=== PATIENT | female | born 1975 | race Two or more races ===

== ENCOUNTER 2025-01-15 19:12 | Emergency (ER) | payer OTHER ==
[~2025-01-15] VITALS: Ht 154.9 cm; Wt 47.2 kg
[2025-01-15] MEDS ORDERED: WELCHOL3.75 GM PO (19:27)
[2025-01-15] MEDS ORDERED: 0.9 % SODIUM CHLORIDE 1,000 ML IV STA (21:08)
[2025-01-15] MEDS ORDERED: ONDANSETRON HCL 2 MG/ML VIAL IV STA (21:08)
[2025-01-15] MEDS ORDERED: MORPHINE SULFATE 4 MG/ML VIAL IV STA (21:09)
[2025-01-15] MEDS ORDERED: HYOSCYAMINE SULFATE 0.125 MG TAB.SUBL SL ONE (21:15)
[2025-01-15 21:40] LABS: BASO % 0.2 % (0.1-1.2); EOS # 0.00 (0.04-0.54); EOS % 0.0 % (0.7-7.0); LYMPH # 0.47 (1.18-3.74); LYMPH % 4.5 % (19.3-53.1); MEAN PLATELET VOLUME 11.80 fl (9.4-12.4); MONO # 0.52 (0.24-0.82); MONO % 5.0 % (4.7-12.5); NEUT # 9.40 (1.56-6.13); NEUT % 89.9 % (34.0-71.1); RED CELL DISTRIBUTION WIDTH 12.6 % (11.6-14.4)
[2025-01-15 22:05] LABS: INR 1.11
[2025-01-15 22:29] LABS: ALT/SGPT 18.0 U/L (12-78); AST/SGOT 19.0 U/L (15-37); BILIRUBIN TOTAL 0.73 mg/dL (0.3-1.2); BUN CREA RATIO 14.0 (7.0-25.0); CREATININE SERUM 0.8 mg/dL (0.55-1.02); GFR 76.56; GLOBULINA 3.6 G/DL (2.4-3.5); GLUCOSE FASTING 105.0 mg/dL (65-100); OSMOLALITY SERUM 279.0 MOSM/KG (275-295)
[2025-01-16] MEDS ORDERED: INTESTINEX680 M1 PO (04:38)
[2025-01-16] MEDS ORDERED: PEPCID AC20 MG PO (04:38)
[2025-01-16] MEDS ORDERED: ZOFRAN8 MG PO (04:38)
[2025-01-16] MEDS ORDERED: LEVSIN/SL0.125 MG SL (04:38)
[2025-01-16] MEDS ORDERED: FAMOTIDINE/PF 20 MG in 0.9 % SODIUM CHLORIDE 8 ML IV PUSH STA (04:40)
[2025-01-16] MEDS ORDERED: DIPHENOXYLATE HCL/ATROPINE 1 UDTAB TABLET PO ONE (04:45)
== END 2025-01-16 05:04 | disposition home or self-care (01) ==
LOC: ER 19:12
DX: K52.9 Noninfective gastroenteritis and colitis, unspecified (principal); D25.9 Leiomyoma of uterus, unspecified

== ENCOUNTER 2025-01-24 08:51 | Outpatient (CLI) | payer OTHER ==
[~2025-01-24 08:51] MED LIST: INTESTINEX680 M1 PO; LEVSIN/SL0.125 MG SL; PEPCID AC20 MG PO; WELCHOL3.75 GM PO; ZOFRAN8 MG PO
== END 2025-01-24 09:01 | disposition home or self-care (01) ==
LOC: TOM 08:51
DX: R10.84 Generalized abdominal pain (principal)